=== PATIENT | female | born 1970 | race Caucasian/White ===

== ENCOUNTER 2020-07-21 06:04 | Emergency (ER) | payer SELFPAY ==
--- NOTE | 2020-07-21 06:31 | ER Document Report ---
ED Medical Screen (RME) - General Chief Complaint: Chest Pain Stated Complaint: CHEST PAIN/HEADACHE Time Seen by Provider: 07/21/20 06:27 Mode of Arrival: Ambulatory Information source: Patient Notes: 49-year-old female presented to ED for complaint of chest pain for the last 2 weeks. She states today it radiated around to the left side of her chest around to her back. She states she has had a headache every day for about the last 2 weeks. She states she did move to [place] about a month ago from [place]. She states this is the first time being at this hospital. She also complains of numbness to her fingers and hands intermittently for the last 1 to 2 weeks multiple times. States she also had 2 episodes of where she got very extremely lightheaded dizzy lost all color in her face the first time was last week Friday and the second time was last . Patient is alert oriented respirations regular nonlabored speaking in full sentences at this time. I have ordered blood urine chest x-ray EKG and she will be seen by another provider. I have greeted and performed a rapid initial assessment of this patient. A comprehensive ED assessment and evaluation of the patient, analysis of test results and completion of medical decision making process will be conducted by an additional ED providers. Physical Exam - Vital signs Vitals: Temp Pulse BP Pulse Ox 98.2 F 107 H 181/127 H 100 07/21/20 06:13 07/21/20 06:13 07/21/20 06:13 07/21/20 06:13 Course - Vital Signs Vital signs: Temp Pulse Resp BP Pulse Ox 98.2 F 107 H 181/127 H 100 07/21/20 06:13 07/21/20 06:13 07/21/20 06:13 07/21/20 06:13
[2020-07-21 07:03] LABS: APPEARANCE,URINE SLIGHTLY-CLOUDY; BILIRUBIN,URINE NEGATIVE (NEGATIVE); COLOR,URINE YELLOW; GLUCOSE, URINE NEGATIVE (NEGATIVE); KETONES,URINE NEGATIVE (NEGATIVE); LEUKOCYTE ESTERASE,URINE NEGATIVE (NEGATIVE); NITRITE,URINE NEGATIVE (NEGATIVE); PROTEIN,URINE NEGATIVE (NEGATIVE); URINE SPECIFIC GRAVITY 1.019; UROBILINOGEN,URINE NEGATIVE mg/dL (<2.0)
--- NOTE | 2020-07-21 08:25 | RADIOLOGY REPORT (SQ) ---
EXAM DESCRIPTION: CHEST 2 VIEWS IMAGES COMPLETED DATE/TIME: 07/21/2020 7:36 am REASON FOR STUDY: chest pain COMPARISON: None. EXAM PARAMETERS: NUMBER OF VIEWS: One view. TECHNIQUE: An AP view of the chest was obtained. RADIATION DOSE: NA LIMITATIONS: None. FINDINGS: LUNGS AND PLEURA: No consolidation, pleural effusion or pneumothorax. MEDIASTINUM AND HILAR STRUCTURES: No mediastinal or hilar contour abnormality. HEART AND VASCULAR STRUCTURES: The cardiac silhouette and pulmonary vasculature are within normal moura its. BONES: No acute findings. HARDWARE: None in the chest. OTHER: No other finding. IMPRESSION: No acute cardiopulmonary process. TECHNICAL DOCUMENTATION: JOB ID: [id number] 2010 [employer]- All Rights Reserved Reading location - IP/workstation name: [email or web address]
--- NOTE | 2020-07-21 08:40 | ER Document Report ---
ED Cardiac - General Chief Complaint: Chest Pain Stated Complaint: CHEST PAIN/HEADACHE Time Seen by Provider: 07/21/20 06:27 Mode of Arrival: Ambulatory Notes: CHIEF COMPLAINT: Multiple complaints HPI: 49-year-old female who is in reasonably good health but does have prior history of hypertension that is currently untreated presenting for evaluation of intermittent left anterior chest discomfort over the last 2 weeks. Occasionally will have some shortness of breath with it states that when she pushes down on the left anterior chest it makes it feel better. Does report some discomfort with taking a deep breath then when the pain is current. Today it is lasted several hours prompting her visit to the emergency department. No abdominal pain nausea vomiting. No weakness numbness or tingling in the arms. She reports no significant family history of early coronary artery disease. Patient reports that she had been on propranolol as well as Norvasc previously for blood pressure. 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 ROS: See HPI - all other systems were reviewed and are otherwise negative Constitutional: no fever Eyes: no drainage, no blurred vision ENT: no runny nose, no sore throat Cardiovascular: + chest pain Resp: + SOB, no cough GI: no vomiting, no diarrhea, no abdominal pain : no dysuria Integumentary: no rash Allergy: no hives Musculoskeletal: no extremity pain or swelling Neurological: no numbness/tingling, no weakness MEDICATIONS: I agree with the patient medications as charted by the RN. ALLERGIES: I agree with the allergies as charted by the RN. PAST MEDICAL HISTORY/PAST SURGICAL HISTORY: Reviewed and agree as charted by RN. SOCIAL HISTORY: Reviewed and agree as charted by RN. FAMILY HISTORY: No significant familial comorbid conditions directly related to patient complaint EXAM: Reviewed vital signs as charted by RN. CONSTITUTIONAL: Alert and oriented and responds appropriately to questions. Well-appearing; well-nourished HEAD: Normocephalic; atraumatic EYES: PERRL; Conjunctivae clear, sclerae non-icteric ENT: normal nose; no rhinorrhea; moist mucous membranes; pharynx without lesions noted, no uvula edema or deviation, no tonsillar hypertrophy, phonation normal NECK: Supple without meningismus; non-tender; no cervical lymphadenopathy, no masses CARD: RRR; no murmurs, no clicks, no rubs, no gallops; symmetric distal pulses RESP: Normal chest excursion without splinting or tachypnea; breath sounds clear and equal bilaterally; no wheezes, no rhonchi, no rales, pulse oximetry 97% on room air not hypoxic ABD/GI: Normal bowel sounds; non-distended; soft, non-tender, no rebound, no guarding; no palpable organomegaly or masses. BACK: The back appears normal and is non-tender to palpation, there is no CVA tenderness EXT: Normal ROM in all joints; non-tender to palpation; no cyanosis, no effusions, no edema SKIN: Normal color for age and race; warm; dry; good turgor; no acute lesions noted NEURO: Moves all extremities equally; Motor and sensory function intact PSYCH: The patient's mood and manner are appropriate. Grooming and personal hygiene are appropriate. MDM: EKG normal sinus rhythm ventricular rate 98 AZ 144 QT 376 QTC 41. No other visible ectopy. Interpreted by emergency department physicians. 49-year-old female presenting with multiple complaints. Her blood pressure is mildly elevated it is currently 167/94 on the monitor. She reports having been on blood pressure medication before but is not currently on blood pressure medication she reports waking up in the morning with what she considers to be migraine type headaches. Has not been checking her blood pressure. It is possible that her blood pressure is causing her headaches and her chest discomfort. Awaiting lab work currently to see if her cardiac labs are normal. Patient is fairly low risk for ACS. Her chest x-ray does not show acute findings. - Related Data Allergies/Adverse Reactions: No Known Allergies Allergy (Unverified 07/21/20 07:59) Past Medical History - General Information source: Patient - Social History Smoking Status: Current Every Day Smoker Chew tobacco use (# tins/day): No Family History: Reviewed & Not Pertinent Patient has homicidal ideation: No Physical Exam - Vital signs Vitals: Temp Pulse BP Pulse Ox 98.2 F 107 H 181/127 H 100 07/21/20 06:13 07/21/20 06:13 07/21/20 06:13 07/21/20 06:13 Course - Re-evaluation Re-evalutation: 07/21/20 09:37 Patient is resting in no acute distress. Her blood pressure continues to improve. I spoke with her at length. Her symptoms started approximately 6 hours before presentation. 1 set of cardiac enzymes are negative, this is likely sufficient given that she had approximately 2 weeks of intermittent discomfort in 6 hours today. I have ordered Toradol for her. She will likely need referral to cardiology for outpatient management. She will likely need referral to medicine as she does not have a primary care physician. She will likely need to be restarted on blood pressure medication as her pressure has continued to be mildly elevated here. I will place her on a low-dose of hydro chlorothiazide. - Vital Signs Vital signs: Temp Pulse Resp BP Pulse Ox 98.2 F 107 H 181/127 H 99 07/21/20 06:13 07/21/20 06:13 07/21/20 06:13 07/21/20 08:04 - Laboratory Results Result Diagrams: 07/21/20 08:28 07/21/20 08:28 Laboratory Results Interpreted: 07/21/20 08:28 BUN 25 H Critical Laboratory Results Reviewed: No Critical Results - Radiology Results Critical Radiology Results Reviewed: No Critical Results Discharge - Discharge Clinical Impression: Chest pain Qualifiers: Chest pain type: other chest pain Qualified Code(s): R07.89 - Other chest pain; R07.8 - Other chest pain Hypertension Qualifiers: Hypertension type: essential hypertension Qualified Code(s): I10 - Essential (primary) hypertension Condition: Stable Disposition: HOME, SELF-CARE Additional Instructions: Take the hydrochlorothiazide to treat the elevated blood pressure. 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 [facility] have been [facility] for primary care. You have been referred to Dr. Lara for cardiology follow-up for further evaluation and outpatient stress test. Your lab work today including your EKG and chest x-ray were all without acute findings. If you have worsening symptoms please return for reeva luation Prescriptions: Hydrochlorothiazide 12.5 mg PO DAILY #14 capsule Referrals: CARI LARA MD [ACTIVE PROVISIONAL STAFF] - Follow up as needed [facility] [Provider Group] - Follow up as needed
[2020-07-21 08:45] LABS: ABSOLUTE BASOPHILS # (AUTO) 0.1 10^3/uL (0.0-0.2); ABSOLUTE EOSINOPHILS # (AUTO) 0.1 10^3/uL (0.0-0.6); ABSOLUTE LYMPHOCYTES (AUTO) 1.6 10^3/uL (0.5-4.7); ABSOLUTE MONOCYTES (AUTO) 0.3 10^3/uL (0.1-1.4); ABSOLUTE NEUT (AUTO) 3.9 10^3/uL (1.7-8.2); BASOPHILS % (AUTO) 0.9 % (0-2); EOSINOPHILS % (AUTO) 1.1 % (0-6); HEMATOCRIT 37.5 % (36.0-47.0); MEAN CORPUSCULAR HEMOGLOBIN 28.6 pg (27.0-33.4); MEAN CORPUSCULAR HGB CONC 34.7 g/dL (32.0-36.0); MEAN CORPUSCULAR VOLUME 82 fl (80-97); PLATELET COUNT 311 10^3/uL (150-450); RED BLOOD COUNT 4.56 10^6/uL (3.72-5.28); RED CELL DISTRIBUTION WIDTH 13.5 % (11.5-14.0); TOTAL CELLS COUNTED % (AUTO) 100 %
[2020-07-21 09:03] LABS: ALKALINE PHOSPHATASE 72 U/L (38-126); ANION GAP 7 (5-19); ASPARTATE AMINO TRANSFERASE 26 U/L (14-36); BILIRUBIN,DIRECT 0.2 mg/dL (0.0-0.4); BILIRUBIN,TOTAL 0.6 mg/dL (0.2-1.3); BLOOD UREA NITROGEN 25 mg/dL (7-20); CALCIUM 9.3 mg/dL (8.4-10.2); CARBON DIOXIDE 25 mmol/L (22-30); CHLORIDE 106 mmol/L (98-107); GLUCOSE 87 mg/dL (75-110); POTASSIUM 4.1 mmol/L (3.6-5.0); TOTAL PROTEIN 6.8 g/dL (6.3-8.2)
[2020-07-21] MEDS ORDERED: KETOROLAC TROMETHAMINE INJ/PF 30 MG/1 ML SDV IV ONE (09:31)
[2020-07-21 10:07] VITALS: BP 163/89
--- NOTE | 2020-07-22 09:02 | EKG REPORT ---
SEVERITY:- BORDERLINE ECG - SINUS RHYTHM PROBABLE LEFT ATRIAL ABNORMALITY : Confirmed by: Fawad Ortiz MD 22-Jul-2020 09:01:24
== END 2020-07-21 10:22 | disposition home or self-care (01) ==
LOC: ER 06:04
DX: R07.9 Chest pain, unspecified (principal); I10 Essential (primary) hypertension; R06.02 Shortness of breath; R51.9 Headache, unspecified; F17.200 Nicotine dependence, unspecified, uncomplicated
CPT/HCPCS: 93005; 99285; 96374; 36415; 85025; 80053; 81001; 84484; 71046; 93010; J1885